=== PATIENT | male | born 2000 | race Caucasian/White ===

== ENCOUNTER → 2022-11-12 | Emergency (ER) | payer MEDICAID, OTHER ==
[~2022-11-12] VITALS: Ht 170.2 cm; Wt 62.6 kg
[~2022-11-12] MED LIST: LACTULOSE 10 G/15 ML UDC (PYXIS) ONE; LACTULOSE 10 G/15 ML UDC (PYXIS) PO ONE; MAGNESIUM CITRATE 296 ML BOTTLE PO ONE
--- NOTE | 2022-11-12 13:15 | NUR ---
PT IN BED 12 BREATHING EVEN AND UNLABORED SPECIAL NEEDS MOTHER AT BEDSIDE. C/O CONSTIPATION.
--- NOTE | 2022-11-12 13:16 | NUR ---
RN WITTNESSED MOTHER GIVE CONSENT FOR RECTAL EXAM BY MD. MOTHER REMAINED AT BEDSIDE MD AND RN AT BEDSIDE.
[2022-11-12 14:06] VITALS: BP 157/93
== END | disposition home or self-care (01) ==
LOC: ER 14:28
DX: K59.00 Constipation, unspecified (principal)